=== PATIENT | male | born 1930 | race Caucasian/White ===

== ENCOUNTER 2019-10-01 11:31 | Emergency (ER) | payer OTHER, MEDICARE ==
--- NOTE | 2019-10-01 12:04 | EDM.PDOC ---
ED HPI GENERAL MEDICAL PROBLEM - General Chief Complaint: General Stated Complaint: Low 02 sats detected by home health provider Time Seen by Provider: 10/01/19 11:45 Source of Information: Reports: Patient, Old Records History Limitations: Reports: No Limitations - History of Present Illness INITIAL COMMENTS - FREE TEXT/NARRATIVE: Jc is a [facility] who comes into [facility] ED with reported low 02 sats detected by [facility] provider this am. He is not endorsing any chest pain, cough, SOB, palpitations, wheezing, sxs of GERD, or dizziness. 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 His 02 sats 95% on RA upon admission. Other hx includes CAD, CHF, HBP, GERD, and hyperlipidemia. He is a reliable historian. - Related Data Allergies Allergy/AdvReac Type Severity Reaction Status Date / Time No Known Allergies Allergy Verified 03/13/17 08:36 ED ROS GENERAL - Review of Systems Review Of Systems: Comprehensive ROS is negative, except as noted in HPI. ED EXAM, GENERAL - Physical Exam Exam: See Below Exam Limited By: No Limitations General Appearance: Alert, WD/WN, No Apparent Distress, Obese Throat/Mouth: Normal Inspection, Normal Lips, Normal Oropharynx, Normal Voice, No Airway Compromise Head: Normocephalic Neck: Normal Inspection, Supple, Non-Tender, Full Range of Motion Respiratory/Chest: No Respiratory Distress, Lungs Clear, Normal Breath Sounds, No Accessory Muscle Use, Chest Non-Tender Cardiovascular: Regular Rate, Rhythm, No JVD, No Murmur, Other (dependent edema 3+ below knees) GI/Abdominal: Normal Bowel Sounds, Soft, Non-Tender, No Organomegaly, No Distention, No Mass (Male) Exam: Deferred Rectal (Males) Exam: Deferred Back Exam: Normal Inspection Extremities: Pedal Edema Neurological: Alert, Oriented, CN II-XII Intact, No Motor/Sensory Deficits Psychiatric: Normal Affect, Normal Mood Skin Exam: Warm, Dry, Intact, Normal Color, No Rash Lymphatic: No Adenopathy Course - Vital Signs Text/Narrative:: Following assessment, lab work was ordered noting elevated d-dimer 1.17, Hgb 11.7 gm with microcytic hypochromic cell indicies, and CMP baseline. The UA noted some pyruia, and a UC was set up. A chest CT angio noted: possible small emboli, age unknown. Jc is asx, and will be discharged on current meds including Plavix 75 mg qd, and have ddimer repeated next week. Last Recorded V/S: Last Vital Signs Temp 36.4 C 10/01/19 11:35 Pulse 65 10/01/19 11:35 Resp 16 10/01/19 11:35 BP Pulse Ox 97 10/01/19 11:35 - Orders/Labs/Meds Orders: Active Orders 24 hr Category Date Time Status Ang Chest [CT] Stat Exams 10/01/19 12:45 Taken CULTURE URINE [RM] Stat Lab 10/01/19 13:42 Ordered Labs: Laboratory Tests 10/01/19 10/01/19 10/01/19 Range/Units 12:10 12:10 12:10 WBC 9.1 (4.5-12.0) X10-3/uL RBC 4.72 (4.30-5.75) x10(6)uL Hgb 11.7 L (13.5-17.8) g/dL Hct 37.0 (30.0-51.3) % MCV 78.4 L (80-96) fL MCH 24.9 L (27.7-33.6) pg MCHC 31.7 L (32.2-35.4) g/dL RDW 16.3 H (11.5-15.5) % Plt Count 220 (125-369) X10(3)uL MPV 7.9 (7.4-10.4) fL Neut % (Auto) 64.6 (46-82) % Lymph % (Auto) 22.7 (13-37) % Esmeralda % (Auto) 8.3 (4-12) % Eos % (Auto) 4 (1.0-5.0) % Baso % (Auto) 0 (0-2) % Neut # (Auto) 5.8 (1.6-8.3) # Lymph # (Auto) 2.1 (0.6-5.0) # Esmeralda # (Auto) 0.8 (0.0-1.3) # Eos # (Auto) 0.4 (0.0-0.8) # Baso # (Auto) 0.0 (0.0-0.2) # D-Dimer, Quantitative 1.17 H (0.0-0.59) mg/LFEU Sodium 143 (135-145) mmol/L Potassium 3.7 (3.5-5.3) mmol/L Chloride 103 (100-110) mmol/L Carbon Dioxide 37 H (21-32) mmol/L BUN 22 H (7-18) mg/dL Creatinine 1.3 (0.70-1.30) mg/dL Est Cr Clr Drug Dosing TNP Estimated GFR (MDRD) 52 L (>60) BUN/Creatinine Ratio 16.9 (9-20) Glucose 97 (80-116) mg/dL Calcium 7.9 L (8.6-10.2) mg/dL Total Bilirubin 0.3 (0.1-1.3) mg/dL AST 11 (5-25) IU/L ALT 13 (12-36) U/L Alkaline Phosphatase 75 (56-112) IU/L NT-Pro-B Natriuret Pep (<=450) pg/mL Total Protein 6.9 (6.0-8.0) g/dL Albumin 3.0 L (3.2-4.6) g/dL Globulin 3.9 g/dL Albumin/Globulin Ratio 0.8 Urine Color (YELLOW) Urine Appearance (CLEAR) Urine pH (5.0-6.5) Ur Specific Turpin (1.010-1.025) Urine Protein (NEGATIVE) mg/dL Urine Glucose (UA) (NORMAL) mg/dL Urine Ketones (NEGATIVE) mg/dL Urine Occult Blood (NEGATIVE) Urine Nitrite (NEGATIVE) Urine Bilirubin (NEGATIVE) Urine Urobilinogen (NEGATIVE) mg/dL Ur Leukocyte Esterase (NEGATIVE) Urine RBC (0-5) Urine WBC (0-5) Ur Squamous Epith Cells (NS,R,O) Urine Bacteria (NS) 10/01/19 10/01/19 Range/Units 12:10 12:45 WBC (4.5-12.0) X10-3/uL RBC (4.30-5.75) x10(6)uL Hgb (13.5-17.8) g/dL Hct (30.0-51.3) % MCV (80-96) fL MCH (27.7-33.6) pg MCHC (32.2-35.4) g/dL RDW (11.5-15.5) % Plt Count (125-369) X10(3)uL MPV (7.4-10.4) fL Neut % (Auto) (46-82) % Lymph % (Auto) (13-37) % Esmeralda % (Auto) (4-12) % Eos % (Auto) (1.0-5.0) % Baso % (Auto) (0-2) % Neut # (Auto) (1.6-8.3) # Lymph # (Auto) (0.6-5.0) # Esmeralda # (Auto) (0.0-1.3) # Eos # (Auto) (0.0-0.8) # Baso # (Auto) (0.0-0.2) # D-Dimer, Quantitative (0.0-0.59) mg/LFEU Sodium (135-145) mmol/L Potassium (3.5-5.3) mmol/L Chloride (100-110) mmol/L Carbon Dioxide (21-32) mmol/L BUN (7-18) mg/dL Creatinine (0.70-1.30) mg/dL Est Cr Clr Drug Dosing Estimated GFR (MDRD) (>60) BUN/Creatinine Ratio (9-20) Glucose (80-116) mg/dL Calcium (8.6-10.2) mg/dL Total Bilirubin (0.1-1.3) mg/dL AST (5-25) IU/L ALT (12-36) U/L Alkaline Phosphatase (56-112) IU/L NT-Pro-B Natriuret Pep 165 (<=450) pg/mL Total Protein (6.0-8.0) g/dL Albumin (3.2-4.6) g/dL Globulin g/dL Albumin/Globulin Ratio Urine Color Yellow (YELLOW) Urine Appearance Slightly cloudy (CLEAR) Urine pH 7.0 H (5.0-6.5) Ur Specific Turpin 1.010 (1.010-1.025) Urine Protein Negative (NEGATIVE) mg/dL Urine Glucose (UA) Normal (NORMAL) mg/dL Urine Ketones Negative (NEGATIVE) mg/dL Urine Occult Blood Moderate H (NEGATIVE) Urine Nitrite Positive H (NEGATIVE) Urine Bilirubin Negative (NEGATIVE) Urine Urobilinogen Normal (NEGATIVE) mg/dL Ur Leukocyte Esterase Moderate H (NEGATIVE) Urine RBC 20-30 H (0-5) Urine WBC 10-20 H (0-5) Ur Squamous Epith Cells Occasional (NS,R,O) Urine Bacteria Moderate H (NS) Meds: Medications Discontinued Medications Generic Name Dose Route Start Last Admin Trade Name Qamar PRN Reason Stop Dose Admin Iopamidol 100 ml 10/01/19 13:11 10/01/19 13:48 Isovue-370 (76%) IV 10/01/19 13:12 100 ml . DIRECTED ONE Administration Departure - Departure Time of Disposition: 14:20 Disposition: Home, Self-Care 01 Condition: Good Clinical Impression: Hypoxia - Discharge Information *PRESCRIPTION DRUG MONITORING PROGRAM REVIEWED*: Not Applicable *COPY OF PRESCRIPTION DRUG MONITORING REPORT IN PATIENT KARLA: Not Applicable Referrals: PCP,Unknown [Primary Care Provider] - Forms: ED Department Discharge Sepsis Event Note - Focused Exam Vital Signs: Vital Signs Temp Pulse Resp Pulse Ox 10/01/19 11:35 36.4 C 65 16 97 Date Exam was Performed: 10/01/19 Time Exam was Performed: 14:19 - Problem List & Annotations (1) Hypoxia SNOMED Code(s): 890498602 Code(s): R09.02 - HYPOXEMIA Status: Acute Current Visit: Yes Annotation /Comment:: Transient hypoxia with [facility], not duplicated in the ED after 3 hours of monitoring at . The Chest Angio noted possible age unk small emboli. In view of mildly elevated d dimer, he will be returned to [facility], and suggest repeating d dimer early next week. Patient expressed understanding of this COA. - Problem List Review Problem List Initiated/Reviewed/Updated: Yes - My Orders Last 24 Hours: My Active Orders 10/01/19 12:45 Ang Chest [CT] Stat 10/01/19 13:42 CULTURE URINE [RM] Stat - Assessment/Plan Last 24 Hours: My Active Orders 10/01/19 12:45 Ang Chest [CT] Stat 10/01/19 13:42 CULTURE URINE [RM] Stat Plan: Follow up d dimer early next week with PCP.
[2019-10-01] MEDS ORDERED: Iopamidol 755 Mg/ML 100 ML Bottle IV ONE (13:11)
--- NOTE | 2019-10-01 17:17 | CT ---
INDICATION: Low oxygen sats, elevated D-dimer. COMPUTERIZED TOMOGRAPHY ANGIOGRAPHY OF THE CHEST WITH CONTRAST FOR PULMONARY ANGIOGRAPHY: Spiral 1.25 mm axial sections were obtained through the chest with sagittal and coronal reconstructions utilizing 100 cc Isovue-370 at 3 cc/ second 10/01/19 - no comparisons. Total exam DLP was 761.23 mGy-cm. No mediastinal mass was identified. Minimal mediastinal lymphadenopathy is noted which is nonspecific. Calcifications are noted in the aorta and coronary arteries. The heart appears mildly enlarged. No pericardial effusion was seen. A small low density lesion in the dome of the liver is again noted and is not significantly changed allowing for changes of technique and positioning. Aortic calcification is noted along with splenic artery calcification. Multiple peripelvic cysts and a cortical cyst are again noted on the right. An increase in size of the cortical cyst in the mid pole area laterally may be present with maximum diameter of approximately 33 mm of the current study and 28 mm on the previous study of 03/13/2017 - CT abdomen and pelvis. A definite consolidating pneumonia or effusion was not identified. However, there are slightly heavy markings at the lung bases with areas of linear density that are new in the lingula, both lower lobes and the middle lobe at the lung base. These may be on the basis of pneumonia or possibly pulmonary emboli but should be correlated clinically. No nodular masses were identified to suggest neoplasia. There is suggestion of third order minimal pulmonary emboli in the lower lobes, questionable on the right and more definite on the left. There is some artifact producing some difficulty in visualization in those areas. No completely obstructive emboli were identified. IMPRESSION: 1. Cannot exclude minimal basilar-lower lobe third order pulmonary emboli especially at the left lower lobe. 2. Parenchymal changes at both lung bases may represent linear atelectasis but could be on the basis of scarring and/or previous pulmonary emboli and/or infection and should be correlated clinically in that regard. 3. ASHD with cardiomegaly. 4. 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 5. Low density lesion, likely a stable cyst at the dome of the right lobe of the liver. 6. Peripelvic and cortical cysts right kidney with cortical cyst appearing slightly increased in size compared with the previous study of 02/15/11. Report was given in person to Dr. Reed immediately after it became available. [facility]
== END 2019-10-01 15:11 | disposition home or self-care (01) ==
LOC: FB.ED 11:31
DX: R09.02 Hypoxemia (principal)
CPT/HCPCS: 36415; 71275; 80053; 81001; 83880; 85025; 85379; 87086; 87088; 87186; 99284; Q9967; 99283